=== PATIENT | female | born 2005 | race Hispanic/Latino ===

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

== ENCOUNTER 2024-09-21 12:54 | Emergency (ER) | payer BC ==
[~2024-09-21] VITALS: Ht 149.9 cm; Wt 74.4 kg
[~2024-09-21 12:54] MED LIST changes: +MEDROXYPROGESTE10 MG PO; +OFLOXACIN5 ML OP
[2024-09-21 12:59] VITALS: TEMP 99
[2024-09-21 13:30] LABS: BASOPHILS % 0.1 % (0.0-1.0); EOSINOPHILS # (AUTO) 0.4 (0.0-0.4); HEMATOCRIT 39.5 % (34.2-44.1); HEMOGLOBIN 13.3 g/dL (12.0-16.0); LYMPHOCYTES # (AUTO) 1.3 (1.0-3.2); LYMPHOCYTES % 9.6 % (18.0-39.1); MEAN CORPUSCULAR HEMOGLOBIN 29.8 pg (28-32); MEAN CORPUSCULAR HGB CONC 33.7 g/dL (31-35); MEAN CORPUSCULAR VOLUME 88.4 fL (81-99); MONOCYTES % 7.2 % (4.4-11.3); NEUTROPHILS % 79.4 % (38.7-80.0); PLATELET COUNT 352 x10e3/uL (140-360); RED BLOOD COUNT 4.47 x10e6/uL (3.6-5.1); RED CELL DISTRIBUTION WIDTH 13.6 % (11.7-14.4); WHITE BLOOD COUNT 13.83 x10e3/uL (4.8-10.8)
[2024-09-21 13:49] LABS: BILIRUBIN,URINE MODERATE (NEGATIVE); CLARITY,URINE TURBID (CLEAR); COLOR,URINE YELLOW (YELLOW); GLUCOSE, URINE NEGATIVE (NEGATIVE); KETONES,URINE >=160 (NEGATIVE); LEUKOCYTE ESTERASE ,URINE NEGATIVE (NEGATIVE); NITRITE,URINE NEGATIVE (NEGATIVE); PH,URINE 6 (5 - 7); PROTEIN,URINE DIPSTICK >=300 (NEGATIVE); URINE UROBILINOGEN 1 mg/dL (0.2 - 1)
[2024-09-21 13:51] LABS: BACTERIA,URINE MANY /HPF; EPITHELIAL CELLS,URINE MANY /LPF
[2024-09-21 13:54] LABS: ALBUMIN 4.2 g/dL (3.5-5.0); ALBUMIN/GLOBULIN RATIO 1.1 (0.8-2.0); ANION GAP 22.9 mmol/L (8-16); BILIRUBIN,TOTAL 1.3 mg/dL (0.2-1.2); CALCIUM 10.7 mg/dL (8.4-10.2); CREATININE, SERUM 0.65 mg/dL (0.57-1.11); TOTAL PROTEIN 8.2 g/dL (6.5-8.1)
[2024-09-21 13:57] LABS: POTASSIUM 2.9 mmol/L (3.5-5.1)
[2024-09-21] MEDS: METOCLOPRAMIDE HCL 10 MG/2ML VIAL IV ONE (14:38)
[2024-09-21] MEDS: ACETAMINOPHEN 325 MG TAB PO ONE (14:38)
[2024-09-21] MEDS: SODIUM CHLORIDE 0.9% 1000ML 1,000 ML IV ONE (14:39)
[2024-09-21] MEDS: KCL 20 MEQ PACKET/ ORAL SOLN PO STA (14:39)
[2024-09-21] MEDS: POTASSIUM CHLORIDE 20MEQ/100ML 100 ML IV ONE (14:41)
[2024-09-21 15:37] VITALS: BP 127/78
[2024-09-21 15:39] VITALS: RESP 21
[2024-09-21 15:54] VITALS: PULSE 81
[2024-09-21] MEDS: POTASSIUM CHLORIDE 20 MEQ TAB CR PO STA (17:02)
[2024-09-21 17:26] LABS: CALCIUM 9.7 mg/dL (8.4-10.2); CREATININE, SERUM 0.58 mg/dL (0.57-1.11)
[2024-09-21] MEDS ORDERED: METOCLOPRAMIDE10 MG PO (17:50)
[2024-09-21] MEDS ORDERED: CEPHALEXIN500 MG PO (17:50)
[2024-09-21 18:01] VITALS: PULSE 83; RESP 16; O2SAT 99
== END 2024-09-21 18:15 | disposition home or self-care (01) ==
LOC: ER 13:19
DX: O21.0 Mild hyperemesis gravidarum (principal); R82.71 Bacteriuria; E86.1 Hypovolemia; E87.6 Hypokalemia; E28.2 Polycystic ovarian syndrome
CPT/HCPCS: 36415; 80048; 80053; 81001; 83690; 84702; 85025; 99284; J2765; J3480; J7030